=== PATIENT | male | born 1975 | race African-American/Black ===

== ENCOUNTER 2017-10-20 22:12 | Emergency (ER) | payer OTHER ==
[2017-10-21 03:23] LABS: ALANINE AMINOTRANSFERASE 43 IU/L (13-69); ALBUMIN 3.7 g/dl (3.3-4.9); ALKALINE PHOSPHATASE 81 IU/L (42-121); ASPARTATE AMINO TRANSFERASE 33 IU/L (15-46); BILIRUBIN,INDIRECT 0.1 mg/dl (0-1.1); BILIRUBIN,TOTAL 0.1 mg/dl (0.2-1.3); TOTAL PROTEIN 6.8 g/dl (6.1-8.1)
[2017-10-21 03:55] LABS: HEPATITIS B SURFACE ANTIGEN NEGATIVE (NEGATIVE)
[2017-10-21 04:12] LABS: HEPATITIS C VIRAL ANTIBODY NEGATIVE (NEGATIVE)
[2017-10-21 04:16] LABS: HIV 1&2 ANTIBODY NEGATIVE (NEGATIVE)
[2017-10-21 05:26] LABS: HEPATITIS B SURFACE ANTIBODY NEGATIVE (NEGATIVE)
== END 2017-10-21 05:30 | disposition home or self-care (01) ==
LOC: FTE 22:12
DX: S61.031A Puncture wound without foreign body of right thumb without damage to nail, initial encounter (principal); I10 Essential (primary) hypertension; E11.9 Type 2 diabetes mellitus without complications; W46.1XXA Contact with contaminated hypodermic needle, initial encounter; Y92.89 Other specified places as the place of occurrence of the external cause
CPT/HCPCS: 80076; 86703; 86706; 86803; 87340; 99283